=== PATIENT | female | born 1990 | race Caucasian/White ===

== ENCOUNTER 2017-07-21 18:26 | Emergency (ER) | payer MEDICARE, OTHER ==
[~2017-07-21 18:26] MED LIST: IBUP800 PO; PERC5TAB12 PO; PRENTAB72 PO
--- NOTE | 2017-07-21 19:56 | PD ---
HPI Chief Complaint Pelvic pressure Travel History International Travel<30 Days: No Contact w/Intl Traveler<30Days: No Known Affected Area: No History of Present Illness HPI 27-year-old 2 para 1001, IUP at 23.6 care complicated by indigestion, prior delivery Patient presents complaining of constant pelvic pressure that occurred for one hour earlier this evening. She reports that pressure was constant in nature and occurred in both sitting and standing positions. She reports that the pelvic pressure resolved posterior one hour prior to arriving however now she just feels it occasionally an intermittent. She reports the pressure occurred once after arriving and that lasted only for 5 minutes breech she denies any pelvic pressure at this time. She is otherwise feeling well. She reports that she is felt normal movements. She denies any leaking of fluid or vaginal bleeding. She reports that had intercourse last night which was less than 24 hours ago. Weeks Gestation: 23 Para: 1 : 2 History Past Medical History Narrative Medical Indigestion Obstetric History Obstetric History 001 Full-term delivery 1 Past Surgical History Narrative Surgical section Family History Narrative Family History Denies Social History Alcohol Use: No Tobacco Use: No Substance Abuse: No Allergies-Medications (Allergen,Severity, Reaction): Coded Allergies: No Known Allergies (Unverified , 02/13/14) Home Meds Active Scripts Ibuprofen (Motrin 800 Mg Tab) 800 Mg Tab, 800 MG PO Q8H Y for PAIN, #60 TAB 1 Refill Prov:ANNA HACKETT MEdelmira 04/10/14 Oxycodone-Acetaminophen 5-325 mg (Percocet 5-325 mg) Oxycodone 5/325 Acetaminophen Tab, 1-2 TAB PO Q4H Y for PAIN, #40 TAB 0 Refills Prov:ANNA HACKETT. MEdelmira 04/10/14 Reported Medications Vit W/ Ferrous Fumara () Tab, 1 PO, TAB 04/07/14 Review of Systems Except as stated in HPI: all other systems reviewed are Neg Physical Exam Narrative GENERAL: Well-nourished, well-developed patient. Upon my arrival to the room the patient is sitting up in bed taking selfies, laughing and talking. SKIN: Warm and dry. HEAD: Normocephalic and atraumatic. EYES: No scleral icterus. No injection or drainage. ENT: No nasal drainage noted. Mucous membranes pink. Airway patent. NECK: Supple, trachea midline. No JVD. CARDIOVASCULAR: Regular rate and rhythm without murmurs, gallops, or rubs. RESPIRATORY: Breath sounds equal bilaterally. No accessory muscle use. BREASTS: Deferred ABDOMEN/GI: Abdomen soft, non-tender, bowel sounds present, no rebound, no guarding Gravid GENITOURINARY: External Genitalia: intact and normal in appearance. Normal BUS. No cervical or vaginal masses appreciated, physiologic discharge, grossly normal rugae. SVE closed/thick/high/posterior/firm. FHT's: EXTREMITIES: No cyanosis or edema. BACK: Nontender without obvious deformity. NEUROLOGICAL: Awake and alert. Motor and sensory grossly within normal limits. Five out of 5 muscle strength in all muscle groups. Normal speech. Psychiatric: Grossly normal memory and affect Musculoskeletal: Grossly normal range of motion, gait, muscle strength Data Data Orders Orders Urinalysis - C+S If Indicated (07/21/17 19:25) MDM Plan Assessment/plan: 1. IUP at 23.6 2. Pelvic pressure: No evidence of labor with cervix will exam is closed/thick/high/posterior/firm. Strict labor precautions. Unable to check fibronectin due to recent intercourse. No contractions noted on monitor, very mild and occasional irritability initially noted but resolved with by mouth fluid hydration. Encouraged good hydration. 3. well-being: Reassuring heart tones that are appropriate for gestational age 4. Follow up with primary OB in 2-3 days or sooner if needed 5. UA negative Diagnosis Diagnosis: Primary Impression: 23 weeks gestation of Additional Impression: False labor before 37 completed weeks of gestation Disposition: DISCHARGE HOME Condition: Jessica De Santiago MD Jul 21, 2017 19:56
[2017-07-21 20:56] LABS: BLOOD, URINE NEG (NEG); COMMENT (UR) CULT NOT INDICATED; CULTURE IF INDICATED CULT NOT INDICATED; GLUCOSE,URINE NEG (NEG); KETONE, URINE NEG (NEG); MUCUS URINE FEW /lpf (OCC); NITRITE,URINE NEG (NEG); SQUAMOUS EPITHELIAL CELL URINE 1 /hpf (0-5); URINE COLOR LIGHT-YELLOW (YELLW/STRAW)
== END 2017-07-21 20:15 | disposition home or self-care (01) ==
LOC: HOBED 18:26
DX: O47.03 False labor before 37 completed weeks of gestation, third trimester (principal); Z3A.23 23 weeks gestation of pregnancy
CPT/HCPCS: 81001; 99283

== ENCOUNTER 2017-11-11 10:43 | Inpatient (IN) | payer OTHER ==
--- NOTE | 2017-11-10 09:41 | MH ---
cc: Vito Romano MD DATE OF ADMISSION: 11/11/2017 ADMITTING DIAGNOSIS: 1. Term . 2. Previous . HISTORY OF PRESENT ILLNESS: This 27-year-old white female para 2-0-1-1 with an LMP of 02/10/2017, EDC of 11/17/2017, EDC of 11/11/2017 by early ultrasound at 12-13 weeks. First delivery by for failure to progress OP and patient is now admitted for repeat section. ADDITIONAL PAST MEDICAL HISTORY: Tonsil and adenoidectomy in childhood. MEDICATIONS: Vitamins. ALLERGIES: None. TRANSFUSIONS: None. SOCIAL HISTORY: She is , works in retail sales. Alcohol, tobacco and drugs are none. FAMILY HISTORY: Noncontributory. REVIEW OF SYSTEMS: Negative. PHYSICAL EXAMINATION: GENERAL: This is a well-developed, well nourished white female. VITAL SIGNS: Stable. HEENT: Within normal limits. CHEST: Clear. HEART: Regular rate. BREASTS: Symmetrical. ABDOMEN: The abdomen is gravid. EFW of 3600 g. PELVIC: The cervix is closed. EXTREMITIES: Normal. The last ultrasound on 10/01/2017 showed vertex presentation, normal fluid, anterior placenta. ASSESSMENT: As above. PLAN: She is now admitted for repeat section. While in the office, I explained the procedures, the risks, benefits and complications including infection, injury and bleeding and patient would like to proceed. Vito Romano MD JAW/WERNER , 09:24 AM , 09:39 AM
[2017-11-11] MEDS ORDERED: ONDANSETRON HCL 4 MG/2 ML VIAL IV ONE (12:00)
[2017-11-11] MEDS ORDERED: OXYTOCIN 10 UNIT/ML AMP IV ONE (12:00)
[2017-11-11] MEDS ORDERED: LACTATED RINGER'S 1000 ML INJ 1,000 ML IV ONE (12:00)
[2017-11-11] MEDS ORDERED: ePHEDrine/NS 25 MG/5 ML SYRINGE IV ONE (12:00)
[2017-11-11] MEDS ORDERED: DEXAMETHASONE SOD PHOS 4 MG/ML VIAL IV ONE (12:00)
[2017-11-11] MEDS ORDERED: PHENYLEPH/NS 1000 MCG/10 ML SYR IV ONE (12:00)
[2017-11-11] MEDS ORDERED: ZANT150T2 PO (12:06)
[2017-11-11 12:13] LABS: AUTOMATED NEUTROPHIL # 7.8 TH/MM3 (1.8-7.7); BASOPHIL % 0.2 % (0.0-2.0); EOSINOPHIL % 0.4 % (0.0-4.0); HEMATOCRIT 34.3 % (35.0-46.0); HEMOGLOBIN 11.6 GM/DL (11.6-15.3); LYMPH % 18.4 % (9.0-44.0); LYMPHOCYTE # 1.9 TH/MM3 (1.0-4.8); MEAN CELL VOLUME 84.5 FL (80.0-100.0); MEAN CORPUSCULAR HEMOGLOBIN 28.6 PG (27.0-34.0); MEAN CORPUSCULAR HGB CONC 33.8 % (32.0-36.0); MEAN PLATELET VOLUME 8.2 FL (7.0-11.0); MONO % 7.4 % (0.0-8.0); MONOCYTE # 0.8 TH/MM3 (0-0.9); NEUT % 73.6 % (16.0-70.0); PLATELET COUNT 263 TH/MM3 (150-450); RED BLOOD COUNT 4.06 MIL/MM3 (4.00-5.30); RED CELL DISTRIBUTION WIDTH 15.7 % (11.6-17.2); WHITE BLOOD COUNT 10.6 TH/MM3 (4.0-11.0)
[2017-11-11] MEDS ORDERED: CITRIC ACID-SODIUM CITRATE LIQ 30 ML UDC PO SCH (12:15)
[2017-11-11] MEDS ORDERED: ceFAZolin 2 GM PREMIX 50 ML IV SCH (12:15)
[2017-11-11 12:24] LABS: BACTERIA, URINE OCC /hpf; BILIRUBIN, URINE NEG (NEG); BLOOD, URINE NEG (NEG); GLUCOSE,URINE NEG (NEG); HYALINE CAST, URINE 1 /lpf (RARE); KETONE, URINE NEG (NEG); MUCUS URINE FEW /lpf (OCC); NITRITE,URINE NEG (NEG); PH, URINE 6.5 (5.0-8.5); SQUAMOUS EPITHELIAL CELL URINE 10 /hpf (0-5); URINE COLOR YELLOW (YELLW/STRAW); URINE LEUKOCYTE ESTERASE LARGE (NEG)
[2017-11-11] MEDS ORDERED: LACTATED RINGER'S 1000 ML IV ONE (12:30)
[2017-11-11] MEDS ORDERED: MORPHINE SULFATE PF 5 MG/10 ML VIAL ONE (12:41)
[2017-11-11] MEDS ORDERED: LACTATED RINGER'S 1000 ML IV SCH (13:00)
[2017-11-11] MEDS ORDERED: KETOROLAC TROMETHAMINE 60 MG/2 ML (IM) VIAL IM PRN (13:00)
[2017-11-11] MEDS ORDERED: oxyCODONE/ACETAMINOPHEN 5 MG/325 MG TAB PO PRN (13:00)
[2017-11-11] MEDS: ACETAMINOPHEN 1000 MG/100 ML VIAL IV SCH ×3 (13:00→20:55)
[2017-11-11] MEDS ORDERED: SIMETHICONE 80 MG CHEWABLE TAB PO PRN (13:00)
[2017-11-11] MEDS ORDERED: OXYTOCIN 30 UNITS-500ML PREMIX 500 ML IV ONE (13:00)
[2017-11-11] MEDS ORDERED: DOCUSATE SODIUM 50 MG/SENNA 8.6 MG TAB PO PRN (13:00)
[2017-11-11] MEDS ORDERED: ONDANSETRON HCL 4 MG/2 ML VIAL IVP PRN (13:00)
[2017-11-11] MEDS ORDERED: MEASLES, MUMPS, RUBELLA VACCINE 0.5 ML VIAL SQ ONE (13:00)
[2017-11-11] MEDS: LACTATED RINGER'S 1000 ML INJ 1,000 ML IV SCH ×2 (13:04→20:54)
[2017-11-11 14:15] VITALS: BP 87/52; PULSE 71; RESP 20; TEMP 97.6; O2SAT 97
--- NOTE | 2017-11-11 14:21 | MP ---
cc: Vito Romano MD DATE OF OPERATION: 11/11/2017 PREOPERATIVE DIAGNOSES: 1. Term . 2. Previous . POSTOPERATIVE DIAGNOSES: 1. Term . 2. Previous . 3. Delivered. PROCEDURE: Repeat low transverse section. ANESTHESIA: Spinal. SURGEON: Vito Romano MD [employer] FEEDER: IKE Brooks ESTIMATED BLOOD LOSS: 600 cc. FLUIDS: 1 liter crystalloid. OBJECTIVE FINDINGS: Following induction of adequate spinal anesthesia, the patient was prepped and draped supine on the operating room table in the left lateral tilt position in the usual sterile fashion with the bladder being drained via Mg catheterization. The abdomen was opened through a Pfannenstiel incision using a knife to excise her old scar. The fascia was opened transversely, stripped from the muscles, the rectus muscle split in the midline and the peritoneum opened sharply without incident. The bladder flap was taken down sharply, retracted inferiorly with a [place] blade, the lower uterine segment incised transversely with a knife, extended with blunt dissection. Membranes revealed clear fluid. The baby was in LOT position, the vacuum extractor applied to the occiput and used to gently elevate the head through the uterine abdominal wound. The mouth was suctioned, the cord clamped and cut and the baby passed to the waiting team, a viable, vigorous male, Apgars 9 and 9, weight 8 pounds, 1 ounce. There was loose nuchal cord. Cord blood obtained for typing. The placenta was manually removed and the uterine cavity cleaned with laps. The uterus was exteriorized and closed with two layers of running suture, the first with a running locking stitch of 0 Vicryl, the second with a running imbricating stitch of 0 Vicryl. Posterior inspection revealed normal uterus, tubes and ovaries. The uterus was replaced in the pelvis, irrigation performed. No bleeding was evident and the bladder flap was closed with a running stitch of 3-0 Vicryl. All laps and retractors were removed. Counts were correct. The anterior peritoneum was closed with a running stitch of 2-0 Vicryl, the fascia closed with a running locking stitch of 2-0 Vicryl from corners to the midline and tied, the subcu with running 3-0 Vicryl, the skin with running subcuticular 3-0 Monocryl, Dermabond applied. All counts were correct and the patient was awakened and taken to the recovery room in good condition. MD ADRIANNE Gooden/ERIN , 01:42 PM , 02:19 PM
[2017-11-11 14:28] VITALS: BP 92/55; PULSE 67; RESP 20
[2017-11-11 14:33] VITALS: BP 102/55; PULSE 73; RESP 20; O2SAT 99
[2017-11-11] MEDS ORDERED: OXYTOCIN 30 UNITS-500ML PREMIX 500 ML ONE (14:42)
[2017-11-11] MEDS ORDERED: ACETAMINOPHEN 1000 MG/100 ML 100 ML IV ONE (14:42)
[2017-11-11 14:58] VITALS: BP 99/56; PULSE 75; RESP 20
[2017-11-11 15:00] VITALS: TEMP 97.6; O2SAT 99
[2017-11-11] MEDS ORDERED: diphenhydrAMINE HCL 50 MG/ML VIAL ONE (15:26)
[2017-11-11] MEDS ORDERED: EPIDURAL-DIPHENHYDRAMINE HCL 50 MG CAP PO PRN (16:00)
[2017-11-11] MEDS ORDERED: EPIDURAL-DIPHENHYDRAMINE HCL 50 MG/ML VIAL IV PUSH PRN (16:00)
[2017-11-11] MEDS ORDERED: EPIDURAL-NALOXONE HCL 0.4 MG/ML AMP IV PUSH PRN (16:00)
[2017-11-11] MEDS ORDERED: EPIDURAL-DO NOT ADMINISTER ANTICOAGULANTS PRN (16:00)
[2017-11-11] MEDS ORDERED: EPIDURAL-NO SYSTEMIC NARCOTICS PRN (16:00)
[2017-11-11] MEDS ORDERED: OXYTOCIN 30 UNITS-500ML PREMIX 500 ML IV PRN (18:15)
[2017-11-11 20:00] VITALS: BP 92/59; PULSE 73; RESP 16; TEMP 97.6
[2017-11-11] MEDS ORDERED: ZOLPIDEM TARTRATE 5 MG TAB PO PRN (21:00)
[2017-11-12 01:20] VITALS: BP 82/51; PULSE 72; RESP 18; TEMP 98
[2017-11-12 04:30] VITALS: BP 84/45; PULSE 64; RESP 18; TEMP 97.9
[2017-11-12] MEDS: ACETAMINOPHEN 1000 MG/100 ML VIAL IV SCH (05:07)
[2017-11-12 05:45] LABS: AUTOMATED NEUTROPHIL # 11.3 TH/MM3 (1.8-7.7); BASOPHIL % 0.1 % (0.0-2.0); EOSINOPHIL % 0.2 % (0.0-4.0); HEMATOCRIT 27.2 % (35.0-46.0); HEMOGLOBIN 9.2 GM/DL (11.6-15.3); LYMPHOCYTE # 2.2 TH/MM3 (1.0-4.8); MEAN CELL VOLUME 84.3 FL (80.0-100.0); MEAN CORPUSCULAR HEMOGLOBIN 28.5 PG (27.0-34.0); MEAN CORPUSCULAR HGB CONC 33.8 % (32.0-36.0); MEAN PLATELET VOLUME 7.9 FL (7.0-11.0); MONO % 8.1 % (0.0-8.0); MONOCYTE # 1.2 TH/MM3 (0-0.9); NEUT % 76.6 % (16.0-70.0); PLATELET COUNT 213 TH/MM3 (150-450); RED BLOOD COUNT 3.23 MIL/MM3 (4.00-5.30); RED CELL DISTRIBUTION WIDTH 15.7 % (11.6-17.2); WHITE BLOOD COUNT 14.8 TH/MM3 (4.0-11.0)
[2017-11-12 06:09] LABS: BICARBONATE 25.3 MEQ/L (21.0-32.0); CALCIUM 8.5 MG/DL (8.5-10.1); CREATININE 0.66 MG/DL (0.50-1.00)
[2017-11-12] MEDS: KETOROLAC TROMETHAMINE 30 MG/ML (IVP) VIAL IV PUSH PRN ×2 (06:20→14:09)
[2017-11-12 07:15] VITALS: BP 94/55; PULSE 62; RESP 18; TEMP 98.4
[2017-11-12 12:00] VITALS: BP 103/61; PULSE 20; RESP 20; TEMP 98.7; O2SAT 97
[2017-11-12 19:20] VITALS: BP_SYST 100; BP_DIAS 55; BP_DIAS 58
[2017-11-12 19:41] VITALS: PULSE 94; RESP 14; TEMP 98.1
[2017-11-12] MEDS: oxyCODONE/ACETAMINOPHEN 5 MG/325 MG TAB PO PRN ×2 (20:21→21:21)
[2017-11-12] MEDS: IBUPROFEN 600 MG TAB PO PRN (20:21)
[2017-11-13] MEDS: oxyCODONE/ACETAMINOPHEN 5 MG/325 MG TAB PO PRN ×4 (01:24→13:41)
[2017-11-13] MEDS: IBUPROFEN 600 MG TAB PO PRN ×2 (02:57→09:31)
[2017-11-13 08:00] VITALS: BP 94/60; PULSE 89; RESP 20; TEMP 97.6; O2SAT 98
[2017-11-13] MEDS ORDERED: OXYC1TAB63 PO (08:36)
--- NOTE | 2017-11-13 08:36 | HHI.DCPOC ---
Discharge Care Plan Report Symptoms to Your Doctor -Temperature above 100.5 degrees -Redness, of incision or excessive or foul smelling drainage -Unusual pain or calf pain -Increased vaginal bleeding -Painful or difficulty urinating -Feelings of extreme sadness or anxiety after 2 weeks Goals to Promote Your Health * To prevent worsening of your condition and complications * To maintain your health at the optimal level Directions to Meet Your Goals Take your medications as prescribed Follow your dietary instruction Follow activity as directed Ensure plenty of rest for recovery Drink fluids for hydration Keep your appointments as scheduled Take your immunizations and boosters as scheduled If your symptoms worsen call your PCP, if no PCP go to Urgent Care Center or Emergency Room Smoking is Dangerous to Your Health. Avoid second hand smoke Call the 24-hour crisis hotline for domestic abuse at Vito Romano MD Nov 13, 2017 08:36
[2017-11-13] MEDS ORDERED: DIPHTH/TETANUS/ACEL PERTUSSIS (BOOSTER) 0.5 ML VIAL/PFS IM ONE (09:00)
--- NOTE | 2017-11-13 09:38 | MD ---
cc: Vito Romano MD DATE OF DISCHARGE: 11/13/2017 ADMITTING DIAGNOSIS: 1. Term . 2. Previous . DISCHARGE DIAGNOSIS: 1. Term . 2. Previous . 3. Delivered. PROCEDURE: Repeat low transverse section on 11/11/2017. HISTORY OF PRESENT ILLNESS: The patient is a 27-year-old white female, para 1-0-1-1, LMP of 02/10/2017, EDC of 11/25/2009 by dates, 11/11/2017 by ultrasound. Her course was benign. labs were normal Rh positive, GBS negative. Previous delivery by for failure to progress. HOSPITAL COURSE: Admitted for repeat section on 11/11/2017. Had delivery of a viable vigorous male . did well. She was discharged home in excellent condition on 11/13/2017. She was advised NPV, light activity and carefully instructed in wound instructions and care. Return to see me in one week. She was given a prescription for Percocet 5 one to two p.o. every 4 hours p.r.n. pain, number 50. Vito Romano MD JAW/DL , 08:40 AM , 09:36 AM
== END 2017-11-13 15:28 | disposition home or self-care (01) | DRG 766 ==
LOC: H2EB 10:43 → H1EA 15:05
PROVIDERS: ADMIT Obstetrics & Gynecology; ATTEND Obstetrics & Gynecology
PROC: 10D00Z1 Extraction of Products of Conception, Low, Open Approach (ICD-10-PCS; principal; 2017-11-11)
DX: O34.211 Maternal care for low transverse scar from previous cesarean delivery (principal); O69.81X0 Labor and delivery complicated by cord around neck, without compression, not applicable or unspecified; Z37.0 Single live birth; Z3A.40 40 weeks gestation of pregnancy
CPT/HCPCS: 59025; 80048; 80307; 81001; 85025; 86850; 86900; 86901; 87086; J0131; J0690; J1100; J1200; J1885; J2274; J2370; J2405; J2590; J7120